=== PATIENT | female | born 1990 | race African-American/Black ===

== ENCOUNTER 2018-04-14 10:08 | Emergency (ER) | payer MEDICAID ==
[~2018-04-14] VITALS: Ht 162.6 cm; Wt 85.0 kg
[~2018-04-14 10:08] MED LIST: ALBUTEROL
[2018-04-14] MEDS ORDERED: BUPR75TA8 PO (10:15)
[2018-04-14] MEDS ORDERED: KETOROLAC 60MG/2ML VIAL IM ONE (11:00)
[2018-04-14] MEDS ORDERED: CYCLOBENZAPRINE 10MG TABLET PO ONE (11:00)
[2018-04-14 12:15] LABS: HCG SCREEN NEGATIVE
[2018-04-14 14:30] VITALS: BP 137/82
== END 2018-04-14 14:47 | disposition home or self-care (01) ==
LOC: ER 10:08
DX: S39.012A Strain of muscle, fascia and tendon of lower back, initial encounter (principal); S16.1XXA Strain of muscle, fascia and tendon at neck level, initial encounter; F32.9 Major depressive disorder, single episode, unspecified; V43.62XA Car passenger injured in collision with other type car in traffic accident, initial encounter; Y93.9 Activity, unspecified; Y92.410 Unspecified street and highway as the place of occurrence of the external cause
CPT/HCPCS: 70450; 72125; 73030; 84703; 96372; 99285; J1885; Z7610